=== PATIENT | female | born 1950 | race Caucasian/White ===

== ENCOUNTER → 2016-11-18 08:51 | Outpatient (CLI) | payer BC ==
[2016-06-16 06:10] VITALS: BMI 21.6
[~2016-11-18 08:51] MED LIST: BETAPACE 80 MG80 MG; BETAPACE 80 MG80 MG PO; MACROBID100 MG PO; PRAVACHOL40 MG PO
== END | disposition home or self-care (01) ==
LOC: D.CT 08:51
DX: N39.0 Urinary tract infection, site not specified (principal)

== ENCOUNTER → 2016-12-12 12:47 | Outpatient (CLI) | payer BC ==
[2016-06-16 06:10] VITALS: BMI 21.6
== END | disposition home or self-care (01) ==
LOC: D.NM 12:47
DX: N39.0 Urinary tract infection, site not specified (principal)

== ENCOUNTER → 2017-05-22 13:32 | Outpatient (CLI) | payer BC ==
[2016-06-16 06:10] VITALS: BMI 21.6
== END | disposition home or self-care (01) ==
LOC: D.MAMMO 08:30
DX: N64.4 Mastodynia (principal)

== ENCOUNTER → 2017-07-10 07:52 | Outpatient (CLI) | payer MEDICARE, OTHER ==
[2016-06-16 06:10] VITALS: BMI 21.6
== END | disposition home or self-care (01) ==
LOC: D.CT 07:52
DX: N39.0 Urinary tract infection, site not specified (principal)

== ENCOUNTER → 2017-10-03 19:11 | Outpatient (CLI) | payer MEDICARE, OTHER ==
[2016-06-16 06:10] VITALS: BMI 21.6
[~2017-10-03 19:11] MED LIST changes: +LAMISIL250 MG PO; +TEMAZEPAM30 MG PO
== END | disposition home or self-care (01) ==
LOC: D.LABREF 19:11 → EDBD 19:11
DX: N39.0 Urinary tract infection, site not specified (principal); R31.9 Hematuria, unspecified

== ENCOUNTER 2017-10-16 05:15 | Day surgery (SDC) | payer MEDICARE, OTHER ==
[2017-10-15 09:32] LABS: HEMATOCRIT 38.1 % (36.0-48.0); HEMOGLOBIN 12.8 g/dL (12-16); MCH 31.6 pg (26.0-34.0); MCHC 33.6 g/dL (31.0-37.0); MCV 94.1 fL (80.0-100.0); MEAN PLATELET VOLUME 10.3 fL (7.4-10.4); RBC 4.05 10x6/uL (4.00-5.40); RDW 12.4 % (11.5-14.5); WBC 4.6 10x3/uL (4.8-10.8)
[~2017-10-16] VITALS: Ht 170.2 cm; Wt 63.5 kg
--- NOTE | ~2017-10-16 | OP ---
PATIENT NAME: BOUCHRA SAMANIEGO MEDICAL RECORD: [id number] :[birth year] LOCATION:[facility] ADMISSION DATE: SURGEON: JATIN SALCEDO MD DATE OF OPERATION: 10/16/2017 SURGEON: Jatin Salcedo MD ANESTHESIA: MAC. PREOPERATIVE DIAGNOSIS: Microscopic hematuria, interstitial cystitis. POSTOPERATIVE DIAGNOSIS: Microscopic hematuria, interstitial cystitis. PROCEDURE: Cystoscopy. FINDINGS: Single ureteral orifices bilaterally. No bladder tumors. Diffuse bladder inflammation in the trigone and dome of the bladder. BLOOD LOSS: None. CLINICAL HISTORY: This is a 67-year-old female, G2, P2, A0 referred by Dr. Cummins for hematuria. She feels that she has recurrent urinary tract infections all the time. The patient has seen Dr. Melendez in the [place] and another urologist in [place] for recurrent urinary tract infections. However, I do not see any urine culture results. She had a CT scan of the abdomen and pelvis, which showed normal kidneys. Her urologist in [place] had put on Macrobid once a day for the past 6 months. In terms of her voiding symptoms she has suprapubic pressure radiating to the back. There is urinary frequency, dysuria, vaginal pain and nocturia times 1. There is also dyspareunia with sex. She comes today to have cystoscopy performed, and if I noticed bladder inflammation then we will start treatment with intravesical Rimso for interstitial cystitis. SHE IS ALLERGIC TO BACTRIM, CLINDAMYCIN AND SULFA. She was given Ancef human relations manager to the OR. DESCRIPTION OF PROCEDURE: The patient was given IV sedation. She was placed in the dorsal lithotomy position and prepped and draped. A 17[place] cystoscope with 30-degree lens was used for visualization. Findings are as outlined above. The bladder was then emptied through the cystoscope sheath. A 16-[place] red rubber catheter was introduced into the bladder and 50 mL of Rimso-50 solution was instilled into the bladder. The catheter was removed, leaving the medication in the bladder. The patient will hold the medication in for about 15 minutes and then void it out. She will be seen next week in the office to have the second treatment given to her in the office. TRANSINT:[id number] Voice Confirmation ID: [id number] DOCUMENT ID: [id number] JATIN SALCEDO MD at 1116 CC: [id number] DICTATION DATE: 10/16/17 0802 TRAFFIC SIGNAL MECHANIC: 10/16/[address] [facility] 10/16/17 [place] [address] [place] [address]
[2017-10-16 06:34] VITALS: BP 112/68; Ht 170.2 cm; Wt 63.5 kg
== END 2017-10-16 08:40 | disposition home or self-care (01) ==
LOC: D.OPS 05:15 → D.PAN 08:00 → EDBD 08:00 → D.OPS 08:40
PROVIDERS: Anesthesiology
DX: N39.41 Urge incontinence (principal); N30.11 Interstitial cystitis (chronic) with hematuria; N94.10 Unspecified dyspareunia; Z88.1 Allergy status to other antibiotic agents; Z88.2 Allergy status to sulfonamides

== ENCOUNTER → 2018-05-12 09:32 | Outpatient (CLI) | payer MEDICARE, OTHER ==
[2017-10-16 06:34] VITALS: BMI 21.9
[~2018-05-12 09:32] MED LIST changes: +DICLOFENAC SODI50 MG PO; +KEFLEX500 MG PO; +PROTONIX40 MG PO; +TAPAZOLE 5 MG TA5 MG PO
== END | disposition home or self-care (01) ==
LOC: D.NM 09:32
DX: E05.90 Thyrotoxicosis, unspecified without thyrotoxic crisis or storm (principal)

== ENCOUNTER → 2018-05-25 14:25 | Outpatient (CLI) | payer MEDICARE, OTHER ==
[2017-10-16 06:34] VITALS: BMI 21.9
== END | disposition home or self-care (01) ==
LOC: D.US 14:25
DX: E05.90 Thyrotoxicosis, unspecified without thyrotoxic crisis or storm (principal)

== ENCOUNTER 2018-05-25 19:49 | Inpatient (IN) | payer MEDICARE, OTHER ==
[~2018-05-25] VITALS: Ht 170.2 cm; Wt 58.4 kg
--- NOTE | ~2018-05-25 | MORECARE ---
CASE MANAGEMENT DISCHARGE SUMMARY PATIENT: BOUCHRA SAMANIEGO UNIT: [id number] ADM DATE: 05/25/18 AGE: 67 : [birth year] SEX: F ROOM/BED: D.2103 AUTHOR: KRISTINA, LAND COMMISSIONER PHYSICIAN: REFERRING PHYSICIAN: ASIF CASAS MD DATE OF SERVICE: 05/25/18 Discharge Plan Patient Name: BOUCHRA SAMANIEGO Facility: [facility]:[place] : 1950 Planned Disposition: Home Anticipated Discharge Date: 05/28/18 Discharge Date: Expected LOS: 3 Initial Reviewer: [email or web address] Initial Review Date: 05/28/2018 Generated: 05/28/18 11:34 am Comments DCP- Discharge Planning Updated by [email or web address]: Jimmy Irvin on 05/28/18 9:[address] Patient Name: BOUCHRA SAMANIEGO Admission Status: ER Accout number: [id number] Admission Date: 05-25-2018 : 1950 Admission Diagnosis:THYROIDITIS, UNSPECIFIED Attending: ASIF CASAS Current LOS: 3 Anticipated DC Date: 05-28-2018 Planned Disposition: Home Primary Insurance: MEDICARE A & B Discharge Planning Comments: CM RECEIVED DISCHARGE ORDER, MET WITH PT AND PERSON PT IDENIFIED HER SISTER,, IN ROOM TO DISCUSS DISCHARGE PLANNING AND NEEDS. BOUCHRA SAMANIEGO provided verbal consent to discuss current and ongoing needs with/in the presence of: HER SISTER. PT REPORTS WANTING APPOINTMENT FOR FOLLOW UP BEFORE LEAVING AND WANTS TO SEE THE DOCTOR BEFORE LEAVING. PT'S SISTER PROVIDED CM INSTRUCTIONS FOR CONTACTING [facility] FOR FOLLOW UP ENDOCRONOLOGY APPOINTMENT. PT REPORTS LIVING AT HOME INDEPENDENTLY WITH HER SPOUSE, PT HAS NO MEDICAL EQUIPMENT AND NO OUTSIDE SERVICES ASSISTING IN THE HOME. CM DISCUSSED AVAILABILITY OF HOME HEALTH, REHAB SERVICES AND MEDICAL EQUIPMENT. PT DENIES DISCHARGE NEEDSOTHER THAN NEEDING TO SEE THE DOCTOR BEFORE DISCHARGE AND WANTING OUTPATIENT APPOINTMENT SCHEDULED URGENTLY BEFORE DISCHARGE. PT REPORTS FAMILY WILL PICK HER UP FOR DISCHARGE HOME TODAY. IMPORTANT MESSAGE FROM MEDICARE PROVIDED AND EXPLAINED. CM INFORMED BIOLOGICAL ENGINEER OF PT'S DESIRE TO SEE DOCTOR PRIOR TO DISCHARGE AND WANTING OUTPATIENT FOLLOW UP APPOINTMENT AT [facility] ON URGENT BASIS. Apprentice Plant Attendant: Jimmy Irvin DCPIA - Discharge Planning Initial Assessment Updated by [email or web address]: Jimmy Irvin on 05/28/18 10:28 am * Is the patient Alert and Oriented? Yes * How many steps to enterexit or inside your home? * PCP DR. SARABIA * Pharmacy [facility] [address] * Preadmission Environment Home with Family * ADLs Independent * Equipment None * Other Equipment NO MEDICAL EQUIPMENT PROVIDER PREFERENCE * List name and contact numbers for known caregivers / representatives who currently or will assist patient after discharge: BOONE SAMANIEGO, SPOUSE, * Verbal permission to speak to the caregivers and representatives has been obtained from the patient. Yes * Community resources currently utilized None * Please name any agencies selected above. NONE * Additional services required to return to the preadmission environment? No * Can the patient safely return to the preadmission environment? Yes * Has this patient been hospitalized within the prior 30 days at any hospital? No Coverage Notice Reviewer: [email or web address] - Jimmy Irvin Notice Issued Date-Time: 05/28/2018 10:15 Notice Type: IM Discharge Notice Notice Delivered To: Patient Relationship to Patient: Contract Modeler Name: Delivery Method: HAND - Hand Delivered Shakira Days: Prior Verbal Notification: Recipient Understood Notice: Yes Recipient Signature: Yes Med Rec Note Co-signed by Attending: Coverage Notice Comment: Patient Name: BOUCHRA SAMANIEGO Page [phone] All edits/amendments must be made on the electronic document DICTATION DATE: 05/28/18 1034 INTAKE CLERK: 05/28/18 1034 RPT#: [id number] DC DATE: STATUS: ADM IN [facility] [address] [place] [address] END OF REPORT
[~2018-05-25 19:49] MED LIST changes: -DICLOFENAC SODI50 MG PO; -KEFLEX500 MG PO; -PROTONIX40 MG PO; -TAPAZOLE 5 MG TA5 MG PO
[2018-05-25] MEDS ORDERED: KEFLEX500 MG PO (20:19)
[2018-05-25] MEDS ORDERED: TAPAZOLE 5 MG TA5 MG PO (20:19)
[2018-05-25] MEDS ORDERED: DICLOFENAC SODI50 MG PO (20:20)
[2018-05-25 20:59] LABS: BASOPHILS 0.1 % (0-2); EOSINOPHILS 0.1 % (0-7); HEMATOCRIT 31.7 % (36.0-48.0); HEMOGLOBIN 10.5 g/dL (12-16); IMMATURE GRANULOCYTES 0.1 % (0-5); LYMPHOCYTES 7.1 % (15-50); MCH 29.7 pg (26.0-34.0); MCHC 33.1 g/dL (31.0-37.0); MCV 89.8 fL (80.0-100.0); MEAN PLATELET VOLUME 10.1 fL (7.4-10.4); MONOCYTES 6.5 % (2-11); NEUTROPHILS 86.1 % (40-80); PLATELET COUNT 146 10x3/uL (130-400); RBC 3.53 10x6/uL (4.00-5.40); RDW 11.9 % (11.5-14.5); WBC 9.9 10x3/uL (4.8-10.8)
[2018-05-25 21:04] LABS: APPEARANCE CLEAR (CLEAR); COLOR STRAW (YELLOW); NITRITE NEGATIVE (NEGATIVE); SPECIFIC GRAVITY 1.005 (1.005-1.020)
[2018-05-25 21:05] LABS: BILIRUBIN NEGATIVE (NEGATIVE); GLUCOSE NEGATIVE (NEGATIVE); KETONE NEGATIVE (NEGATIVE); PROTEIN NEGATIVE (NEGATIVE); UROBILINOGEN NORMAL (NORMAL)
[2018-05-25 21:18] LABS: ALKALINE PHOSPHATASE 97 U/L (46-116); ALT (SGPT) 19 U/L (10-68); BILIRUBIN - TOTAL 0.53 mg/dL (0.2-1.3); CALC OSMOLALITY 273 mosm/kg (275-300); CARBON DIOXIDE 26.9 mmol/L (21.0-32.0); CHLORIDE - SERUM 102 mmol/L (98-107); CREATININE - SERUM 0.8 mg/dL (0.6-1.3); GLUCOSE 135 mg/dL (74-106); POTASSIUM - SERUM 3.7 mmol/L (3.5-5.1); PROTEIN - SERUM 7.1 g/dL (6.4-8.2); SODIUM 136 mmol/L (136-145); UREA NITROGEN 13 mg/dL (7-18); eGFR NON AFRICAN AMERICAN 76 mL/min (90-120)
[2018-05-26] VITALS (7 sets, daily range): BP systolic 93–133; BP diastolic 41–71; BMI 21.9
[2018-05-26 05:57] LABS: BASOPHILS 0.2 % (0-2); EOSINOPHILS 0.3 % (0-7); HEMATOCRIT 26.9 % (36.0-48.0); HEMOGLOBIN 8.9 g/dL (12-16); LYMPHOCYTES 19.2 % (15-50); MCH 29.8 pg (26.0-34.0); MCHC 33.1 g/dL (31.0-37.0); MEAN PLATELET VOLUME 10.5 fL (7.4-10.4); MONOCYTES 15.6 % (2-11); NEUTROPHILS 64.7 % (40-80); PLATELET COUNT 126 10x3/uL (130-400); RBC 2.99 10x6/uL (4.00-5.40)
[2018-05-26 06:12] LABS: WBC 5.8 10x3/uL (4.8-10.8)
[2018-05-26 06:29] LABS: ALBUMIN 2.6 g/dL (3.4-5.0); ALKALINE PHOSPHATASE 74 U/L (46-116); ALT (SGPT) 15 U/L (10-68); BILIRUBIN - TOTAL 0.42 mg/dL (0.2-1.3); CALC OSMOLALITY 280 mosm/kg (275-300); CALCIUM 8.7 mg/dL (8.5-10.1); CARBON DIOXIDE 28.3 mmol/L (21.0-32.0); CHLORIDE - SERUM 105 mmol/L (98-107); CREATININE - SERUM 0.7 mg/dL (0.6-1.3); GLUCOSE 99 mg/dL (74-106); POTASSIUM - SERUM 3.5 mmol/L (3.5-5.1); PROTEIN - SERUM 6.2 g/dL (6.4-8.2); SODIUM 141 mmol/L (136-145); UREA NITROGEN 13 mg/dL (7-18); eGFR NON AFRICAN AMERICAN 89 mL/min (90-120)
[2018-05-26 10:31] LABS: T4 THYROXIN - FREE 5.67 ng/dL (0.76-1.46)
[2018-05-27 01:26] VITALS: BP 107/55
[2018-05-27 05:39] VITALS: BP 91/58
[2018-05-27 07:45] VITALS: BP 102/54
[2018-05-27 11:22] VITALS: BP 115/65
[2018-05-27 14:22] VITALS: Ht 170.2 cm; Wt 58.4 kg
[2018-05-27 15:40] VITALS: BP 118/70
[2018-05-27 20:17] VITALS: BP 137/67
[2018-05-28 00:58] VITALS: BP 117/60
[2018-05-28 05:16] VITALS: BP 110/57
[2018-05-28 05:45] LABS: BASOPHILS 0 % (0-2); EOSINOPHILS 0.7 % (0-7); HEMATOCRIT 28.7 % (36.0-48.0); HEMOGLOBIN 9.6 g/dL (12-16); LYMPHOCYTES 20.2 % (15-50); MCH 29.7 pg (26.0-34.0); MCHC 33.4 g/dL (31.0-37.0); MCV 88.9 fL (80.0-100.0); MONOCYTES 16.3 % (2-11); NEUTROPHILS 62.8 % (40-80); PLATELET COUNT 136 10x3/uL (130-400); RBC 3.23 10x6/uL (4.00-5.40); RDW 11.8 % (11.5-14.5); WBC 4.6 10x3/uL (4.8-10.8)
[2018-05-28 06:10] LABS: CALC OSMOLALITY 281 mosm/kg (275-300); CALCIUM 9.1 mg/dL (8.5-10.1); CARBON DIOXIDE 28.8 mmol/L (21.0-32.0); CHLORIDE - SERUM 107 mmol/L (98-107); CREATININE - SERUM 0.6 mg/dL (0.6-1.3); GLUCOSE 99 mg/dL (74-106); POTASSIUM - SERUM 3.8 mmol/L (3.5-5.1); SODIUM 141 mmol/L (136-145); T4 THYROXIN - FREE 5.14 ng/dL (0.76-1.46); UREA NITROGEN 15 mg/dL (7-18); eGFR NON AFRICAN AMERICAN > 90 mL/min (90-120)
[2018-05-28 07:41] VITALS: BP 123/58
[2018-05-28] MEDS ORDERED: PROTONIX40 MG PO (09:06)
[2018-05-28] MEDS ORDERED: TAPAZOLE 5 MG TA5 MG PO (09:06)
[2018-05-28 11:36] VITALS: BP 130/76
== END 2018-05-28 14:23 | disposition home or self-care (01) | DRG 645 ==
LOC: D.ER 19:49 → D.M2 22:39
PROVIDERS: Family Medicine; Internal Medicine Nephrology
DX: E06.9 Thyroiditis, unspecified (principal); D64.9 Anemia, unspecified; E78.5 Hyperlipidemia, unspecified; D69.6 Thrombocytopenia, unspecified; I48.91 Unspecified atrial fibrillation; G89.29 Other chronic pain; M54.5 Low back pain; E04.1 Nontoxic single thyroid nodule; F41.9 Anxiety disorder, unspecified

== ENCOUNTER → 2018-08-28 09:33 | Outpatient (CLI) | payer MEDICARE, OTHER ==
[2018-05-27 14:22] VITALS: BMI 21.9
[~2018-08-28 09:33] MED LIST changes: +DICLOFENAC SODI50 MG PO; +KEFLEX500 MG PO; +PROTONIX40 MG PO; +TAPAZOLE 5 MG TA5 MG PO
== END | disposition home or self-care (01) ==
LOC: D.MRI 09:33
DX: M54.5 Low back pain (principal)

== ENCOUNTER → 2018-10-22 09:19 | Outpatient (CLI) | payer MEDICARE, OTHER ==
[2018-05-27 14:22] VITALS: BMI 21.9
--- NOTE | ~2018-10-22 | ST ---
PATIENT:BOUCHRA SAMANIEGO MEDICAL RECORD: [id number] SEX: F LOCATION:[facility] ORDER #: ADMISSION DATE: 10/22/18 AGE OF PATIENT: 68 REFERRING PHYSICIAN: INTERPRETING PHYSICIAN: DEVIKA ELLIOTT MD DATE OF SERVICE: 10/22/2018 PROCEDURE: Nuclear stress test. INDICATION: Chest pain compatible with angina and dysrhythmia - SVT. The patient was exercised on standard Lukasz protocol for 8 minutes, achieving greater than 85% max target heart rate response with 33 mCi of sestamibi injected at peak stress and 11 mCi was used previously for rest images. FINDINGS: Gated SPECT reveals preserved ejection fraction at 63% with good wall motion and thickening and brightening throughout all segments. SPECT imaging Cardiolite was used as myocardial fusion agent. There is homogeneous uptake throughout all segments at rest and stress with no evidence of inducible ischemia or previous infarction. OVERALL IMPRESSION: 1. This is a normal nuclear stress test with no evidence of inducible ischemia or previous infarction. 2. Gated SPECT reveals a preserved ejection fraction at 63%. In this patient with ongoing symptomatology, the current scan does not suggest the presence of hemodynamically significant coronary artery disease. Evaluate noncardiac etiology of chest pain. TRANSINT:[id number] Voice Confirmation ID: [id number] DOCUMENT ID: [id number] DEVIKA ELLIOTT MD CC: [id number] DICTATION DATE: 10/23/18 09 [facility] REGISTRAR: 10/24/18 0340 DEP CLI 10/22/18 [facility] [address] [place] [address]
== END | disposition home or self-care (01) ==
LOC: D.HCCARDIO 09:19
DX: I20.9 Angina pectoris, unspecified (principal)

== ENCOUNTER 2019-05-18 08:30 | Outpatient (CLI) | payer MEDICARE, OTHER ==
[2018-05-27 14:22] VITALS: BMI 21.9
== END 2019-05-18 09:00 | disposition home or self-care (01) ==
LOC: D.MAMMO 08:30
PROVIDERS: ATTEND Family Medicine
DX: Z12.31 Encounter for screening mammogram for malignant neoplasm of breast (principal)

== ENCOUNTER → 2019-08-11 07:39 | Outpatient (CLI) | payer MEDICARE, OTHER ==
[2018-05-27 14:22] VITALS: BMI 21.9
== END | disposition home or self-care (01) ==
LOC: D.MRI 07:39
PROVIDERS: ATTEND Emergency Medicine
DX: M54.5 Low back pain (principal)

== ENCOUNTER 2019-11-21 23:00 | Emergency (ER) | payer MEDICARE, OTHER ==
[~2019-11-21] VITALS: Ht 170.2 cm; Wt 63.5 kg
[2019-11-21 23:05] VITALS: Ht 170.2 cm; Wt 63.5 kg
[2019-11-22 00:23] LABS: APPEARANCE CLEAR (CLEAR); BILIRUBIN NEGATIVE (NEGATIVE); COLOR DK YELLOW (YELLOW); GLUCOSE NEGATIVE (NEGATIVE); KETONE NEGATIVE (NEGATIVE); NITRITE POSITIVE (NEGATIVE); PROTEIN NEGATIVE (NEGATIVE); SPECIFIC GRAVITY 1.005 (1.005-1.020); UROBILINOGEN NORMAL (NORMAL)
[2019-11-22 00:24] LABS: BACTERIA MANY /hpf (NEGATIVE); EPITHELIAL CELLS 0-5 /hpf (0-5); RED CELLS - URINE 0-5 /hpf (0-5)
[2019-11-22] MEDS ORDERED: ULTRAM50 MG PO (01:00)
[2019-11-22] MEDS ORDERED: MACROBID100 MG PO (01:00)
[2019-11-22 01:22] VITALS: BP 132/87
== END 2019-11-22 01:23 | disposition home or self-care (01) ==
LOC: D.ER 23:00
PROVIDERS: Emergency Medicine
DX: N39.0 Urinary tract infection, site not specified (principal); I48.91 Unspecified atrial fibrillation; E07.9 Disorder of thyroid, unspecified